=== PATIENT | female | born 1975 | race American Indian/Alaskan Native ===

== ENCOUNTER 2017-05-16 21:36 | Emergency (ER) | payer MEDICAID ==
[2017-05-16] MEDS ORDERED: ZOFRAN ODT PO ONE (22:12)
[2017-05-16] MEDS ORDERED: ZOFRAN ODT ONE (22:12)
[2017-05-16 22:20] VITALS: BP 181/121
[2017-05-16 22:54] LABS: Hematocrit 38.7 % (30.3-42.9); Hemoglobin 12.2 gm/dl (10.1-14.3); Mean Corpuscular HGB Conc 32 % (30-34); Mean Corpuscular Hemoglobin 28 pg (28-32); Mean Corpuscular Volume 89 fl (79-97); Platelet Count 304 K/mm3 (140-440); Red Blood Count 4.33 M/mm3 (3.65-5.03); Red Cell Distribution Width 16.1 % (13.2-15.2); White Blood Count 16.1 K/mm3 (4.5-11.0)
[2017-05-16 23:05] LABS: Alanine Aminotransferase 10 units/L (7-56); Albumin 4.9 g/dL (3.9-5); Albumin/Globulin Ratio 1.3 %; Alkaline Phosphatase 42 units/L (35-129); Anion Gap 23 mmol/L; BUN/Creatinine Ratio 16.66; Blood Urea Nitrogen 10 mg/dL (7-17); Calcium 9.9 mg/dL (8.4-10.2); Carbon Dioxide 19 mmol/L (22-30); Chloride 105.1 mmol/L (98-107); Glucose 165 mg/dL (65-100); Lipase 20 units/L (13-60); Potassium 4.4 mmol/L (3.6-5.0); Sodium 143 mmol/L (137-145); Total Protein 8.7 g/dL (6.3-8.2)
[2017-05-16 23:22] LABS: Anisocytosis 1+; Basophils % (Manual) 0 % (0.0-1.8); Blastocytes % (Manual) 0 %
[2017-05-16 23:25] LABS: Diff Status Complete
[2017-05-17 00:52] LABS: Bilirubin,Urine NEG (Negative); Blood,Urine MOD (Negative); Ketones,Urine 80 mg/dL (Negative); Leukocyte Esterase,Urine NEG (Negative); Mucus,Urine FEW /HPF; Nitrite,Urine NEG (Negative); Urobilinogen,Urine < 2.0 mg/dL (<2.0)
[2017-05-17] MEDS ORDERED: ZOFRAN ODT PO ONE (22:12)
== END 2017-05-17 02:40 | disposition left against medical advice (07) ==
LOC: ED 21:36
DX: R10.9 Unspecified abdominal pain (principal); Z53.21 Procedure and treatment not carried out due to patient leaving prior to being seen by health care provider
CPT/HCPCS: 36415; 80053; 81001; 83690; 84703; 85007; 85025; Q0162